=== PATIENT | male | born 1970 | race Hispanic/Latino ===

== ENCOUNTER 2024-03-11 13:59 | Inpatient (IN) | payer SELFPAY ==
[2024-03-11] VITALS (22 sets, daily range): BP systolic 104–182; BP diastolic 68–116
[~2024-03-11] VITALS: Ht 152.4 cm; Wt 63.5 kg
[2024-03-11] MEDS ORDERED: LORazepam 2 MG/ML IV ONE (14:10)
[2024-03-11] MEDS ORDERED: SODIUM CHLORIDE 0.9% 1,000 ML IV ONE ×2 (14:15)
[2024-03-11 14:48] LABS: BASO% 0.7 % (0-3); HEMATOCRIT 38.9 % (39.0-50.0); HEMOGLOBIN 13.4 g/dl (14.0-18.0); IMMATURE GRANULOCYTES 0.8 % (0.0-5.0); LYMPH% 22.9 % (15-41); MEAN CELL VOLUME 90.9 fL CALC (80.0-100.0); MEAN CORPUSCULAR HGB 31.3 pG CALC (26.0-32.0); MEAN CORPUSCULAR HGB CONC 34.4 g/dL CAL (32.0-36.0); MONO% 10.3 % (2-13); NEUT# 5.44 thou/uL (1.82-7.42); NEUT% 63.3 % (42-76); RED BLOOD COUNT 4.28 mill/uL (4.70-6.10); RED CELL DISTRI WIDTH 11.8 % (11.5-15.5)
[2024-03-11 15:03] LABS: ALBUMIN 3.9 g/dL (3.2-5.0); ALKALINE PHOSPHATASE 173 u/l (38-126); ANION GAP 7 (6-22 (CALC)); BILIRUBIN, TOTAL 0.9 mg/dL (0.2-1.3); BUN 12 mg/dL (9-20); BUN/CREATININE RATIO 18 (12-20 (CALC)); CARBON DIOXIDE 28 mmol/l (22-30); CHLORIDE 103 mmol/l (95-108); CREATININE 0.7 mg/dL (0.7-1.3); ESTIMATED GFR 112 ML/MIN (>=90 (CALC)); ETHYL ALCOHOL 0 mg/dl (0-30); POTASSIUM 3.6 mmol/l (3.5-5.1); SGOT/AST 42 u/l (17-59); SODIUM 135 mmol/l (137-146); TOTAL PROTEIN 7.7 g/dL (6.3-8.2)
[2024-03-11 15:26] LABS: URINE BILIRUBIN - DIPSTICK Negative (NEGATIVE); URINE BLOOD DIPSTICK Trace-lysed (NEGATIVE); URINE COLOR Yellow; URINE GLUCOSE - DIPSTICK 500 mg/dL (NEGATIVE); URINE KETONE Negative (NEGATIVE); URINE LEUK ESTERASE Negative (NEGATIVE); URINE NITRITE - DIPSTICK Negative (Negative); URINE PH 6.5 (4.5-8.0); URINE PROTEIN - DIPSTICK 30 mg/dL (NEG-TRACE); URINE SPECIFIC GRAVITY 1.015; URINE UROBILINOGEN - DIPSTICK 0.2 E.U./dL (0.2)
[2024-03-11 15:35] LABS: URINE YEAST FEW hpf
[2024-03-11] MEDS ORDERED: ACETAMINOPHEN 325 MG/TAB PO PRN (19:40)
[2024-03-11] MEDS ORDERED: MAGNESIUM HYDROXIDE 30 ML UDC PO PRN (19:40)
[2024-03-11] MEDS ORDERED: SODIUM CHLORIDE 0.9% 1,000 ML IV PRN (19:40)
[2024-03-11] MEDS ORDERED: LORazepam 2 MG/ML IV PRN (19:45)
[2024-03-11] MEDS ORDERED: chlordiazePOXIDE HCL 25 MG CAP PO PRN (20:55)
[2024-03-11] MEDS ORDERED: ENOXAPARIN SODIUM 40 MG/0.4 ML SYR SC SCH (21:00)
[2024-03-12 05:47] LABS: HEMATOCRIT 42.8 % (39.0-50.0); HEMOGLOBIN 14.3 g/dl (14.0-18.0); MEAN CELL VOLUME 94.7 fL CALC (80.0-100.0); MEAN CORPUSCULAR HGB 31.6 pG CALC (26.0-32.0); MEAN CORPUSCULAR HGB CONC 33.4 g/dL CAL (32.0-36.0); RED BLOOD COUNT 4.52 mill/uL (4.70-6.10); RED CELL DISTRI WIDTH 11.8 % (11.5-15.5)
[2024-03-12 05:50] LABS: ALBUMIN 3.5 g/dL (3.2-5.0); BILIRUBIN, TOTAL 1.1 mg/dL (0.2-1.3); CREATININE 0.8 mg/dL (0.7-1.3); MAGNESIUM 2.1 mg/dL (1.6-2.3); POTASSIUM 3.9 mmol/l (3.5-5.1)
[2024-03-12] MEDS ORDERED: MULTIPLE VITAMIN 10 ML,THIAMINE HCL 100 MG in DEXTROSE 5% / 0.9% NACL 1,000 ML IV SCH (09:00)
[2024-03-12 21:44] VITALS: BP 147/99
[2024-03-12 22:00] VITALS: BP 131/88
[2024-03-12 23:01] VITALS: BP 155/107
[2024-03-13] VITALS (27 sets, daily range): BP systolic 110–182; BP diastolic 75–127
[2024-03-13] MEDS ORDERED: DEXTROSE 250 ML IV PRN ×3 (00:05→13:25)
[2024-03-13 06:42] LABS: HEMATOCRIT 44.7 % (39.0-50.0); MEAN CELL VOLUME 95.3 fL CALC (80.0-100.0); MEAN CORPUSCULAR HGB CONC 33.6 g/dL CAL (32.0-36.0); RED BLOOD COUNT 4.69 mill/uL (4.70-6.10); RED CELL DISTRI WIDTH 11.5 % (11.5-15.5)
[2024-03-13 06:43] LABS: CREATININE 0.5 mg/dL (0.7-1.3); MAGNESIUM 1.9 mg/dL (1.6-2.3); POTASSIUM 3.7 mmol/l (3.5-5.1)
[2024-03-13] MEDS ORDERED: INSULIN LISPRO 100 UNITS/ML ML SC SCH (07:00)
[2024-03-13] MEDS ORDERED: ASPIRIN EC 81 MG/TAB PO SCH (11:00)
[2024-03-13] MEDS ORDERED: CLOPIDOGREL BISULFATE 75 MG/TAB TAB PO SCH (12:00)
[2024-03-13] MEDS ORDERED: PANTOPRAZOLE SODIUM Sesquihydr 40 MG/TAB PO SCH (12:00)
[2024-03-13] MEDS ORDERED: INSULIN DETEMIR 100 UNITS/ML SC SCH (13:30)
[2024-03-13] MEDS ORDERED: ATORVASTATIN CALCIUM 40 MG/TAB PO SCH (21:00)
[2024-03-14] VITALS (20 sets, daily range): BP systolic 131–162; BP diastolic 89–105
[2024-03-14 05:40] LABS: HEMATOCRIT 40.6 % (39.0-50.0); HEMOGLOBIN 13.6 g/dl (14.0-18.0); MEAN CORPUSCULAR HGB 31.5 pG CALC (26.0-32.0); MEAN CORPUSCULAR HGB CONC 33.5 g/dL CAL (32.0-36.0); RED BLOOD COUNT 4.32 mill/uL (4.70-6.10); RED CELL DISTRI WIDTH 11.6 % (11.5-15.5)
[2024-03-14 05:53] LABS: BILIRUBIN, TOTAL 0.7 mg/dL (0.2-1.3); CREATININE 0.7 mg/dL (0.7-1.3); MAGNESIUM 1.8 mg/dL (1.6-2.3); POTASSIUM 3.7 mmol/l (3.5-5.1); TOTAL PROTEIN 6.3 g/dL (6.3-8.2)
[2024-03-14] MEDS ORDERED: LevETIRAcetam 500 MG/TAB PO SCH (09:30)
[2024-03-14] MEDS ORDERED: INSULIN DETEMIR 100 UNITS/ML SC SCH (10:00)
[2024-03-15] VITALS (14 sets, daily range): BP systolic 132–166; BP diastolic 86–133
[2024-03-15 05:42] LABS: HEMATOCRIT 42.4 % (39.0-50.0); HEMOGLOBIN 14.6 g/dl (14.0-18.0); MEAN CELL VOLUME 93.2 fL CALC (80.0-100.0); MEAN CORPUSCULAR HGB 32.1 pG CALC (26.0-32.0); MEAN CORPUSCULAR HGB CONC 34.4 g/dL CAL (32.0-36.0); RED BLOOD COUNT 4.55 mill/uL (4.70-6.10); RED CELL DISTRI WIDTH 11.7 % (11.5-15.5)
[2024-03-15 05:52] LABS: BILIRUBIN, TOTAL 0.8 mg/dL (0.2-1.3); CREATININE 0.7 mg/dL (0.7-1.3); MAGNESIUM 1.7 mg/dL (1.6-2.3); POTASSIUM 3.6 mmol/l (3.5-5.1); TOTAL PROTEIN 7.4 g/dL (6.3-8.2)
[2024-03-15 06:01] LABS: ALBUMIN 3.7 g/dL (3.2-5.0)
[2024-03-15] MEDS ORDERED: DEXTROSE 250 ML IV PRN (10:40)
[2024-03-15] MEDS ORDERED: INSULIN DETEMIR 100 UNITS/ML SC SCH (11:00)
[2024-03-15] MEDS ORDERED: KEPPRA1000 MG PO (15:57)
[2024-03-15] MEDS ORDERED: ADLT ASA LOW81 MG PO (15:57)
[2024-03-15] MEDS ORDERED: LIPITOR80 M1 PO (15:57)
[2024-03-15] MEDS ORDERED: PLAVIX75 MG PO (15:57)
[2024-03-15] MEDS ORDERED: LANTUS100 UNIT SC (15:57)
[2024-03-16] MEDS ORDERED: INSULIN DETEMIR 100 UNITS/ML SC SCH (09:00)
== END 2024-03-15 16:30 | disposition left against medical advice (07) | DRG 66 ==
LOC: ED 13:59 → ED-I 15:06 → EDBD 15:06 → ED 15:06 → ED-I 16:10 → ED 16:22 → ED-I 16:23 → ICU 19:57
PROVIDERS: Nurse Practitioner; Psychiatry & Neurology Neurology; ADMIT Internal Medicine; ATTEND Internal Medicine
DX: I63.412 Cerebral infarction due to embolism of left middle cerebral artery (principal); I63.432 Cerebral infarction due to embolism of left posterior cerebral artery; R56.9 Unspecified convulsions; R47.1 Dysarthria and anarthria; R47.81 Slurred speech; R29.810 Facial weakness; R29.701 NIHSS score 1; G93.89 Other specified disorders of brain; E11.9 Type 2 diabetes mellitus without complications; F10.20 Alcohol dependence, uncomplicated; Y90.0 Blood alcohol level of less than 20 mg/100 ml; F17.200 Nicotine dependence, unspecified, uncomplicated
CPT/HCPCS: A9579; J1650; J1953; J2060

== ENCOUNTER 2024-09-02 08:38 | Emergency (ER) | payer SELFPAY ==
[~2024-09-02] VITALS: Ht 152.4 cm; Wt 68.0 kg
[2024-09-02] VITALS (28 sets, daily range): BP systolic 142–204; BP diastolic 92–119
[~2024-09-02 08:38] MED LIST: ADLT ASA LOW81 MG PO; KEPPRA1000 MG PO; LANTUS100 UNIT SC; LIPITOR80 M1 PO; PLAVIX75 MG PO
[2024-09-02] MEDS ORDERED: LIDOcaine HCl 1% (Local Anesth.) 20 ML VIAL IM ONE (08:45)
[2024-09-02] MEDS ORDERED: KEFLEX500 MG PO (09:48)
[2024-09-02] MEDS ORDERED: Diph, Acellular Pertussis, Tet 0.5 ML/VIAL (Tdap) SDV IM ONE (09:50)
[2024-09-02] MEDS ORDERED: LABETALOL HCL 20 MG/ 4 ML CARTRG IV ONE (10:40)
[2024-09-02] MEDS ORDERED: KETOROLAC TROMETHAMINE 15 MG/ML SDV IV ONE (11:10)
[2024-09-02 11:15] LABS: BASO% 0.3 % (0-3); EOS% 1.6 % (0-8); HEMATOCRIT 47.6 % (39.0-50.0); HEMOGLOBIN 16.1 g/dl (14.0-18.0); IMMATURE GRANULOCYTES 0.6 % (0.0-5.0); LYMPH% 31.6 % (15-41); MEAN CELL VOLUME 88.6 fL CALC (80.0-100.0); MEAN CORPUSCULAR HGB CONC 33.8 g/dL CAL (32.0-36.0); MONO% 9.1 % (2-13); NEUT# 3.64 thou/uL (1.82-7.42); NEUT% 56.8 % (42-76); RED BLOOD COUNT 5.37 mill/uL (4.70-6.10); RED CELL DISTRI WIDTH 12.3 % (11.5-15.5)
[2024-09-02 11:30] LABS: CREATININE 0.6 mg/dL (0.7-1.3); POTASSIUM 4.2 mmol/l (3.5-5.1); TOTAL PROTEIN 8.7 g/dL (6.3-8.2)
[2024-09-02 11:31] LABS: ALBUMIN 4.8 g/dL (3.2-5.0); BILIRUBIN, TOTAL 1.2 mg/dL (0.2-1.3)
== END 2024-09-02 13:46 | disposition home or self-care (01) | DRG 999 ==
LOC: ED 08:38
PROVIDERS: Family Medicine
PROC: 0HQFXZZ Repair Right Hand Skin, External Approach (ICD-10-PCS; principal; 2024-09-02)
DX: S67.192A Crushing injury of right middle finger, initial encounter (principal); S62.632B Displaced fracture of distal phalanx of right middle finger, initial encounter for open fracture; W20.8XXA Other cause of strike by thrown, projected or falling object, initial encounter; Y99.0 Civilian activity done for income or pay; I10 Essential (primary) hypertension
CPT/HCPCS: 90715; J0690; J1885

== ENCOUNTER 2024-09-05 11:01 | Emergency (ER) | payer SELFPAY ==
[~2024-09-05] VITALS: Ht 152.4 cm; Wt 67.0 kg
[~2024-09-05 11:01] MED LIST changes: +KEFLEX500 MG PO
[2024-09-05 11:12] VITALS: BP 175/114
[2024-09-05 11:15] VITALS: BP 173/111
[2024-09-05 11:30] VITALS: BP 172/105
[2024-09-05 12:00] VITALS: BP 165/103
[2024-09-05 12:15] VITALS: BP 184/111
[2024-09-05 12:30] VITALS: BP 154/104
== END 2024-09-05 12:43 | disposition home or self-care (01) | DRG 950 ==
LOC: ED 11:01
DX: S67.192D Crushing injury of right middle finger, subsequent encounter (principal); S61.212D Laceration without foreign body of right middle finger without damage to nail, subsequent encounter; X58.XXXD Exposure to other specified factors, subsequent encounter